=== PATIENT | female | born 1940 | race Caucasian/White ===

== ENCOUNTER → 2018-07-02 | Outpatient (CLI) | payer MEDICARE ==
[~2018-07-02] MED LIST: ASPIRIN EC81 M1; DIOVAN160 MG; FISHOIL; MAGNESIUM GLUC500 M1; TOPROL XL50 MG
== END ==
LOC: M.RAD 06-18 14:14 → M.ULTRA 08:51
DX: M47.814 Spondylosis without myelopathy or radiculopathy, thoracic region (principal); M25.78 Osteophyte, vertebrae; K76.0 Fatty (change of) liver, not elsewhere classified; R16.0 Hepatomegaly, not elsewhere classified; G89.29 Other chronic pain; Z91.040 Latex allergy status; Z91.09 Other allergy status, other than to drugs and biological substances; Z90.49 Acquired absence of other specified parts of digestive tract